=== PATIENT | female | born 1945 | race Caucasian/White ===

== ENCOUNTER 2017-10-01 06:07 | Day surgery (SDC) | payer MEDICARE, SELFPAY ==
[~2017-10-01] VITALS: Ht 154.9 cm; Wt 72.6 kg
[~2017-10-01 06:07] MED LIST: ASPI81CH PO; ATEN50 PO; CHOL10002 PO; Colace100 MG PO; Crestor20 MG PO; DIPH50 PO; DOCU100 PO; ERGO400 PO; HYDCHL25 PO; HYDMOR2 PO; INDO50 PO; LOSA50 PO; OMEPRAZOLE MAGN20 MG PO; Prilosec Otc20 MG PO; Prozac40 MG PO; ROSU10TA PO; TAMS.4ER PO; TRAM50 PO; Zofran Odt4 MG SL
[2017-10-02] MEDS ORDERED: HYDMOR2 PO (13:25)
[2018-08-31] MEDS ORDERED: Norco 7.5-3251 EACH PO (15:35)
[2018-08-31] MEDS ORDERED: Prednisone20 MG PO (15:35)
== END 2017-10-02 14:07 | disposition home or self-care (01) ==
LOC: ORSCMMR 06:07 → SURS 12:13
PROC: 0TQ34ZZ Repair Right Kidney Pelvis, Percutaneous Endoscopic Approach (ICD-10-PCS; principal; 2017-10-02)
DX: N13.1 Hydronephrosis with ureteral stricture, not elsewhere classified (principal); I10 Essential (primary) hypertension; F17.210 Nicotine dependence, cigarettes, uncomplicated; Z79.82 Long term (current) use of aspirin; Z79.899 Other long term (current) drug therapy
CPT/HCPCS: 88305; C1769; C2617; J0690; J1100; J1885; J2250; J2270; J2405; J2710; J3010; J7030; J7042; J7120; Q0163

== ENCOUNTER 2017-12-01 07:11 | Day surgery (SDC) | payer MEDICARE, SELFPAY ==
[~2017-12-01] VITALS: Ht 154.9 cm; Wt 73.9 kg
[2018-08-31] MEDS ORDERED: Norco 7.5-3251 EACH PO (15:35)
[2018-08-31] MEDS ORDERED: Prednisone20 MG PO (15:35)
== END 2017-12-01 23:00 | disposition home or self-care (01) ==
LOC: ORSCMMR 07:11
PROVIDERS: Internal Medicine Gastroenterology
PROC: 0DBH8ZX Excision of Cecum, Via Natural or Artificial Opening Endoscopic, Diagnostic (ICD-10-PCS; principal; 2017-12-01 08:30)
PROC: 0DBP8ZX Excision of Rectum, Via Natural or Artificial Opening Endoscopic, Diagnostic (ICD-10-PCS; principal; 2017-12-01 08:30)
PROC: 0DBL8ZX Excision of Transverse Colon, Via Natural or Artificial Opening Endoscopic, Diagnostic (ICD-10-PCS; principal; 2017-12-01 08:30)
PROC: 0DBN8ZX Excision of Sigmoid Colon, Via Natural or Artificial Opening Endoscopic, Diagnostic (ICD-10-PCS; principal; 2017-12-01 08:30)
DX: Z12.11 Encounter for screening for malignant neoplasm of colon (principal); C7A.025 Malignant carcinoid tumor of the sigmoid colon; C7A.026 Malignant carcinoid tumor of the rectum; D12.0 Benign neoplasm of cecum; K63.5 Polyp of colon; K62.1 Rectal polyp; I25.10 Atherosclerotic heart disease of native coronary artery without angina pectoris; F17.210 Nicotine dependence, cigarettes, uncomplicated; K21.9 Gastro-esophageal reflux disease without esophagitis; E78.00 Pure hypercholesterolemia, unspecified; I10 Essential (primary) hypertension; F32.9 Major depressive disorder, single episode, unspecified; Z79.82 Long term (current) use of aspirin; Z79.899 Other long term (current) drug therapy
CPT/HCPCS: 88305; 88341; 88342; J7120

== ENCOUNTER 2018-01-13 20:00 | Emergency (ER) | payer MEDICARE ==
[~2018-01-13] VITALS: Ht 188 cm; Wt 72.6 kg
== END 2018-01-13 22:21 | disposition home or self-care (01) ==
LOC: ER 20:00
DX: S76.312A Strain of muscle, fascia and tendon of the posterior muscle group at thigh level, left thigh, initial encounter (principal); M79.652 Pain in left thigh; X58.XXXA Exposure to other specified factors, initial encounter; Z88.2 Allergy status to sulfonamides; Z88.5 Allergy status to narcotic agent; Z88.8 Allergy status to other drugs, medicaments and biological substances; Z79.899 Other long term (current) drug therapy; Z79.82 Long term (current) use of aspirin; I10 Essential (primary) hypertension; F17.200 Nicotine dependence, unspecified, uncomplicated
CPT/HCPCS: 93971; 96372; 99284; J1885

== ENCOUNTER 2018-12-21 07:10 | Day surgery (SDC) | payer MEDICARE ==
[~2018-12-21] VITALS: Ht 154.9 cm; Wt 73.5 kg
[~2018-12-21 07:10] MED LIST changes: +Norco 7.5-3251 EACH PO; +Prednisone20 MG PO
--- NOTE | 2018-12-21 07:26 | NUR ---
History, Chart, Medications and Allergies reviewed before start of procedure. Patient confirms NPO status and agrees with scheduled surgery. Reports taking all of colon prep with clear results. Patient States Post-Procedure ride home has been arranged with her son, Lamin.
--- NOTE | 2018-12-21 07:35 | NUR ---
Lungs clear T/O to Auscultation.
--- NOTE | 2018-12-21 08:05 | NUR ---
12/21/18 0805 Katarzyna Beasley History, Chart, Medications and Allergies reviewed before start of procedure. PATIENT CONFIRMS NPO STATUS AND AGREES WITH SCHEDULED PROCEDURE. MONITOR INTACT WITH CONTINUOUS PULSE OXIMETRY AND INTERMITTENT BP. PATIENT DETERMINED TO BE ASA APPROPRIATE FOR PROPOFOL SEDATION PRIOR TO START OF PROCEDURE BY DR. SILVA. O2 VIA N/C INTACT THROUGHOUT SEDATION/PROCEDURE. 3-LEAD EKG REVIEWED WITH PHYSICIAN PRIOR TO START OF PROCEDURE.
--- NOTE | 2018-12-21 09:00 | NUR ---
REPORT TO MARK CHRISTIANSON RN.
--- NOTE | 2018-12-21 09:10 | NUR ---
Discharge instructions reviewed with patient. Patient verbalizes understanding. Copy given to patient to take home. Patient States Post-Procedure ride home has been arranged.
== END 2018-12-21 09:16 | disposition home or self-care (01) ==
LOC: ORSCMMR 07:10 → ORD 08:30 → ORSCMMR 08:30
PROVIDERS: Internal Medicine Gastroenterology
PROC: 0DBP8ZX Excision of Rectum, Via Natural or Artificial Opening Endoscopic, Diagnostic (ICD-10-PCS; principal; 2018-12-21 08:30)
PROC: 0DBM8ZX Excision of Descending Colon, Via Natural or Artificial Opening Endoscopic, Diagnostic (ICD-10-PCS; principal; 2018-12-21 08:30)
PROC: 0DBL8ZX Excision of Transverse Colon, Via Natural or Artificial Opening Endoscopic, Diagnostic (ICD-10-PCS; principal; 2018-12-21 08:30)
PROC: 0DBK8ZX Excision of Ascending Colon, Via Natural or Artificial Opening Endoscopic, Diagnostic (ICD-10-PCS; principal; 2018-12-21 08:30)
PROC: 0DBN8ZX Excision of Sigmoid Colon, Via Natural or Artificial Opening Endoscopic, Diagnostic (ICD-10-PCS; principal; 2018-12-21 08:30)
DX: C7A.026 Malignant carcinoid tumor of the rectum (principal); D12.2 Benign neoplasm of ascending colon; D12.3 Benign neoplasm of transverse colon; K63.5 Polyp of colon; K62.1 Rectal polyp; I25.10 Atherosclerotic heart disease of native coronary artery without angina pectoris; C91.10 Chronic lymphocytic leukemia of B-cell type not having achieved remission; Z79.899 Other long term (current) drug therapy; Z79.82 Long term (current) use of aspirin; I10 Essential (primary) hypertension; F17.210 Nicotine dependence, cigarettes, uncomplicated
CPT/HCPCS: 88305; J7120

== ENCOUNTER 2019-04-15 07:32 | Day surgery (SDC) | payer MEDICARE, OTHER ==
[~2019-04-15] VITALS: Wt 72.6 kg
--- NOTE | 2019-04-15 07:55 | NUR ---
INTO SDS STATES NPO ADMISSION TO UNIT STARTED
--- NOTE | 2019-04-15 08:52 | NUR ---
PT TO [facility]OX 2 MINUTES AGO. AWAKE, ALERT, CONVERSING WITH STAFF. REQUESTS COFFEE TO DRINK. NO C/O PAIN OR DISCOMFORT. NO NAUSEA. FAMILY MEMBER AT BEDSIDE.
--- NOTE | 2019-04-15 08:57 | NUR ---
04/15/19 0857 Tee Ervin PATIENT DETERMINED TO BE ASA APPROPRIATE FOR PROPOFOL SEDATION PRIOR TO START OF PROCEDURE BY DR. Loc Hooks Placed3-LEAD EKG REVIEWED WITH PHYSICIAN PRIOR TO START OF PROCEDURE.Patient to ENDO 1History, Chart, Medications and Allergies reviewed before start of procedure. HURRICAINE SPRAY TO OROPHARYX.MONITOR INTACT WITH CONTINUOUS PULSE OXIMETRY AND INTERMITTENT BP.O2 VIA N/C INTACT THROUGHOUT SEDATION/PROCEDURE.
--- NOTE | 2019-04-15 08:58 | NUR ---
MD TO BEDSIDE TO REVIEW FINDINGS. AWAITING CBC DRAW ORDERED BY PHYSICIAN.
--- NOTE | 2019-04-15 09:18 | NUR ---
BLOOD HAS BEEN DRAWN. REVIEWED DISCHARGE INSTRUCTIONS WITH PATIENT AND SON, BOTH OF WHOM VERBALIZE UNDERSTANDING OF ALL INSTRUCTIONS GIVEN. PT HAS NOT TAKEN BP MEDICATION TODAY - INSTRUCTED TO TAKE SOON SHE GETS HOME. AGREES TO DO SO. ASYMPTOMATIC RELATED TO ELEVATED BP. IV DC TIP INTACT AND PT DRIVEN HOME BY SON.
--- NOTE | 2019-04-15 09:19 | NUR ---
ADDENDUM: PT STEADY ON FEET AND ABLE TO DRESS SELF.
[2019-04-15 09:20] LABS: BASOPHILS ABSOLUTE AUTO 0.05 K/mm3 (0.00-0.23); BASOPHILS PERCENT AUTO 1 % (0-2); EOSINOPHILS ABSOLUTE AUTO 0.28 K/mm3 (0.00-0.68); EOSINOPHILS PERCENT AUTO 3 % (0-6); Hematocrit 35.1 % (33.0-51.0); Hemoglobin 11.1 g/dL (11.5-16.0); IMMATURE GRAN ABSOLUTE AUTO 0.01 K/mm3 (0.00-0.10); IMMATURE GRAN PERCENT AUTO 0 % (0-1); LYMPHOCYTES ABSOLUTE AUTO 3.52 K/mm3 (0.84-5.20); LYMPHOCYTES PERCENT AUTO 40 % (21-46); MONOCYTES ABSOLUTE AUTO 0.56 K/mm3 (0.16-1.47); MONOCYTES PERCENT AUTO 6 % (4-13); Mean Corpuscular HGB 28.3 pg (26.0-34.0); Mean Corpuscular HGB Conc 31.6 g/dL (31.5-36.5); Mean Corpuscular Volume 90 fL (80-100); Mean Platelet Volume 10.1 fL (9.1-12.4); NEUTROPHILS ABSOLUTE AUTO 4.49 K/mm3 (1.96-9.15); NEUTROPHILS PERCENT AUTO 50 % (41-73); Platelet Count 194 K/mm3 (150-400); RDW Coefficient Variation 15.6 % (11.7-14.2); RDW Standard Deviation 51.1 fL (35.1-46.3); Red Blood Cell Count 3.92 M/mm3 (3.80-5.20); White Blood Cell Count 8.91 K/mm3 (4.00-11.30)
== END 2019-04-15 22:57 | disposition home or self-care (01) ==
LOC: ORSCMMR 07:32 → ORD 08:45 → ORSCMMR 08:45
PROVIDERS: Internal Medicine Gastroenterology
PROC: 0W3P8ZZ Control Bleeding in Gastrointestinal Tract, Via Natural or Artificial Opening Endoscopic (ICD-10-PCS; principal; 2019-04-15 08:45)
PROC: 0DB68ZX Excision of Stomach, Via Natural or Artificial Opening Endoscopic, Diagnostic (ICD-10-PCS; principal; 2019-04-15 08:45)
PROC: 0DB48ZX Excision of Esophagogastric Junction, Via Natural or Artificial Opening Endoscopic, Diagnostic (ICD-10-PCS; principal; 2019-04-15 08:45)
PROC: 0DB58ZX Excision of Esophagus, Via Natural or Artificial Opening Endoscopic, Diagnostic (ICD-10-PCS; principal; 2019-04-15 08:45)
DX: K22.70 Barrett's esophagus without dysplasia (principal); K21.9 Gastro-esophageal reflux disease without esophagitis; K25.4 Chronic or unspecified gastric ulcer with hemorrhage; I25.10 Atherosclerotic heart disease of native coronary artery without angina pectoris; Z79.899 Other long term (current) drug therapy; Z79.82 Long term (current) use of aspirin; F17.210 Nicotine dependence, cigarettes, uncomplicated
CPT/HCPCS: 36415; 85025; 88305; 88342; J2704; J7120